=== PATIENT | male | born 1975 | race Caucasian/White ===

== ENCOUNTER → 2018-05-16 16:28 | Outpatient (CLI) | payer OTHER, SELFPAY ==
[2017-03-01 19:59] VITALS: BMI 27.2
[2018-05-16 17:57] LABS: Amphetamine Urine VISTA NEGATIVE (<1000 ng/mL); Barbiturate Urine VISTA NEGATIVE (< 200 ng/mL); Benzodiazepine Urine VISTA NEGATIVE (< 200 ng/mL); Cocaine Urine VISTA NEGATIVE (< 300 ng/mL); Ecstacy Urine VISTA NEGATIVE (< 500 ng/mL); Methadone Urine VISTA NEGATIVE (< 300 ng/mL); PCP Urine VISTA NEGATIVE (< 25 ng/mL); THC Urine VISTA NEGATIVE (< 50 ng/mL); Vista UDS pH Range 6
--- OUTSIDE RECORDS SUMMARY | 2018-07-12 02:41 | XMS RPT_ITS | Summary of Care ---
:1975 Author Organization [facility] Address [address] [place] [address] Care Team Providers Name Role Phone Tonja Fraser MD Primary Care Provider Encounter Details Date Type Department Care Team Description 02/01/2018 Hospital Encounter [facility] [place] James Oconnor MD [place], [place] [address] [place] [address] [address] [address] [place] [address] Allergies Active Allergy Reactions Severity Noted Date Comments Penicillins 08/25/2015 as of this encounter Medications Prescription Sig. Disp. Refills Start Date End Date Status aspirin 81 MG EC Take 81 mg by Active tablet mouth daily. lansoprazole Take 15 mg by Active (PREVACID) 15 MG mouth daily. capsule tadalafil (CIALIS) 5 Take 5 mg by mouth Active MG tablet daily as needed for erectile dysfunction. clomiPHENE (CLOMID) 50 Take 25 mg by Active mg tablet mouth daily. cetirizine (ZYRTEC) 10 Take 10 mg by Active MG tablet mouth daily. potassium 99 mg Tab Take by mouth. Active magnesium aspartate Take 615 mg by Active (MAGINEX) 61 mg (615 mouth 2 (two) mg) tablet times a day. multivitamin Take 1 tablet by Active (THERAGRAN) per tablet mouth daily. HYDROcodone-acetaminop Take 1 tablet by Active hen (NORCO) 7.5-325 mg mouth. per tablet atorvastatin (LIPITOR) TAKE ONE TABLET BY 30 tablet 12/01/2017 Active 80 MG tablet MOUTH ONCE DAILY XTAMPZA ER 12 hr 01/29/2018 Active capsule sprinkle lisinopril-hydrochloro Take 1 (one) 30 tablet 02/01/2018 Active thiazide tablet by mouth (PRINZIDE,ZESTORETIC) daily. 20-25 mg per tablet labetalol (NORMODYNE) Take 1 (one) 60 tablet 11 02/01/2018 Active 100 MG tablet tablet (100 mg total) by mouth 2 (two) times a day. as of this encounter Active Problems Problem Noted Date CAD (coronary artery disease) 08/29/2015 Overview: RCA MARIA T 2009 Hyperlipidemia 08/29/2015 Hypertension 08/29/2015 Social History Tobacco Use Types Packs/Day Years Used Date Former Smoker Cigarettes Smokeless Tobacco: Current User Snuff Comments: Quit 6 years ago. Alcohol Use Drinks/Week oz/Week Comments Yes 0 Standard drinks or equivalent 0.0 occasionally Sex Assigned at Date Recorded Not on file as of this encounter Progress Notes James Oconnor MD - 02/01/2018 6:25 PM EDTLipids and LFT's acceptable but K mildly depressed. Increase dietary K and repeat only BMP in 3 monthsin this encounter Plan of Treatment Health Maintenance Due Date Last Done Comments TETANUS EVERY 10 YR 1975 SEQUENTIAL INFLUENZA VACCINE (#1) 2018 as of this encounter Results Lipid Panel (02/01/2018 3:46 PM) Component Value Ref Range Cholesterol 136 100 - 199 mg/dL Triglycerides 136 (H) 25 - 120 mg/dL HDL 43 40 - 59 mg/dL LDL 65 10 - 150 mg/dL VLDL 27 5 - 40 mg/dL CHOL/HDL Ratio 3.1 (L) 3.2 - 5.0 Comment: Male Coronary Heart Disease Risk Factor (CHDRF): Average risk= 5.0 1/2 Average risk= 3.4 2 times Average risk= 9.6 Specimen [place] [address] Hepatic Function Panel (02/01/2018 3:46 PM) Component Value Ref Range AST 16 0 - 45 U/L Comment: This test result might be falsely depressed or falsely elevated on samples drawn from patients taking Sulfasalazine and Sulfapyridine. Venipuncture should occur prior to taking either of these drugs. ALT 34 14 - 65 U/L Comment: This test result might be falsely depressed or falsely elevated on samples drawn from patients taking Sulfasalazine and Sulfapyridine. Venipuncture should occur prior to taking either of these drugs. Alkaline Phosphatase 50 40 - 150 U/L Bilirubin, Total 0.3 0.3 - 1.2 mg/dL Bilirubin, Direct <0.1 0.0 - 0.4 mg/dL Total Protein 6.7 6.0 - 8.0 g/dL Albumin 4.0 3.2 - 5.2 g/dL Specimen Performing Laboratory Blood [address] [address] Basic Metabolic Panel (02/01/2018 3:46 PM) Component Value Ref Range Glucose 90 70 - 99 mg/dL Comment: This test result might be falsely depressed or falsely elevated on samples drawn from patients taking Sulfasalazine and Sulfapyridine. Venipuncture should occur prior to taking either of these drugs. BUN 9 8 - 25 mg/dL Creatinine 0.90 0.50 - 1.30 mg/dL eGFR >=60 ml/min/1.73sq.m Comment: Non- GFR Calc eGFR is an estimated Glomerular Filtration Rate based on the value of the patient's serum creatinine. In outpatients, eGFR should be used as a helpful tool in screening for CKD. In inpatients or patients with acute renal failure, eGFR represents the GFR at the moment of the draw and should be used with caution. eGFR >=60Comment: GFR Calc ml/min/1.73sq.m Calcium 8.8 8.4 - 10.2 mg/dL Sodium 140 135 - 145 mmol/L Potassium 3.4 (L) 3.5 - 5.1 mmol/L Chloride 104 98 - 108 mmol/L CO2 27 21 - 32 mmol/L Specimen Performing Laboratory Blood [address] [address] in this encounter
--- OUTSIDE RECORDS SUMMARY | 2018-07-12 02:41 | XMS RPT_ITS ---
:1975 Author Organization [facility] Care Team Providers Name Role Phone JAMES OCONNOR Attending Unavailable GEO GUILLORY Primary Care Unavailable Dr. James Oconnor Admitting Unavailable Dr. 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 Luiza Stokes Active [place] dependence, [facility] F11.20(ICD-10) Repository 02/01/2018 [facility] / [place] I10(ICD-10) Repository 02/01/2018 [facility] of [place] coronary Repository artery without angina pectoris / I25.10(ICD-10) PROCEDURES PROCEDURES No Procedure Records FoundRESULTS RESULTS URINE DRUG SCREEN Collected: 05/16/2018 Status: F Source: [place] (VISTA) 4:50 PM [facility] REPOSITORY Order Comment: Comments: [id number] RUN LOWEST TEST List of Drugs Taken or Suspected? UNK TYPE CODE TESTS RESULT OUT OF RANGE REFERENCE UNITS LAB L505.0075 TO BE Normal CONFIRMED Result Comment: CONFIRMATORY TESTING FOR ALL POSITIVE URINE DRUG SCREEN RESULTS WILL ONLY BE SENT OUT UPON PHYSICIAN ORDER. VISTA Urine Drug Screen methods provide only preliminary analytical test results. A more specific alternate chemical method must be used in order to obtain a confirmed analytical result. Gas chromatography/mass spectrometery (GC/MS) is the preferred confirmatory method. Clinical consideration and professional judgement should be applied to any drug of abuse test result, particularly when preliminary positive results are used. URINE TCA TESTING MUST BE ORDERED SEPARATELY. USE TEST MNEMONIC: [facility] LAB L505.5005 VISTA UDS PH 6 Normal LAB L505.5015 <1000 ng/mL AMPHETAMINES Normal NEGATIVE LAB L505.5025 < 200 ng/mL BARBITIURATES Normal NEGATIVE LAB L505.5035 < 200 ng/mL BENZODIAZIPINE Normal NEGATIVE LAB L505.5045 < 300 ng/mL COCAINE Normal NEGATIVE LAB L505.5055 < 500 ng/mL ECSTACY Normal NEGATIVE LAB L505.5065 < 300 ng/mL METHADONE Normal NEGATIVE LAB L505.5075 < 300 High ng/mL OPIATES POSITIVE LAB L505.5085 < 25 ng/mL PCP Normal NEGATIVE LAB L505.5095 < 50 ng/mL THC Normal NEGATIVE Performed By: #### L505.5000 #### [facility] [address] [place], [address] MISCELLANEOUS LAB Collected: 05/16/2018 Status: F Source: [place] PROCEDURE 4:50 PM [facility] REPOSITORY Order Comment: Comments: [id number] RUN LOWEST TEST Test(s) Ordered: [id number] RUN LOWEST TEST TYPE CODE TESTS RESULT OUT OF RANGE REFERENCE UNITS LAB L801.1541 Normal [facility] LAB TEST Result Comment: [id number] 6+OXYCODONE-BUND (ng/mL) DRUG RESULT SCREEN CUTOFF ____ Amphetamines,Urine Negative ng/mL 1000 Amphetamine test includes Amphetamine and Methamphetamine. Barbiturates Negative ng/mL 200 Benzodiazepines Negative ng/mL 200 Cannabinoid Negative ng/mL 20 Cocaine (Metab) Negative ng/mL 300 Opiates Negative ng/mL 300 Opiates test includes Codeine, Morphine, Hydromorphone, Hydrocodone. Oxycodone/Oxymorphone,Urine Positive ng/mL 300 Test includes Oxydodone and Oxymorphone. Oxycodone Positive Oxycodone GC/MS 1243 ng/mL 300 Oxymorphone Positive Oxymorphone GC/MS 1990 ng/mL 300 TESTING PERFORMED AT [facility]. ORIGINAL REPORT ON FILE IN LAB CONTAINS ADDITIONAL TEST SITE INFORMATION. Performed By: #### L801.1541 #### [facility] [address] [place], [address] BASIC METABOLIC PANEL Collected: 02/01/2018 Status: F Source: [facility] 3:[address] [facility] REPOSITORY TYPE CODE TESTS RESULT OUT OF RANGE REFERENCE UNITS LAB GLU 70-99 mg/dL Normal Glucose 90 Result Comment: This test result might be falsely depressed or falsely elevated on samples drawn from patients taking Sulfasalazine and Sulfapyridine. Venipuncture should occur prior to taking either of these drugs. LAB BUN 8-25 mg/dL Normal BUN 9 LAB CREA 0.50-1.30 mg/dL Normal Creatinine 0.90 LAB eGFR ml/min/1.73s Normal q.m eGFR,NonAfrican-Am erican >=60 Result Comment: Non- GFR Calc eGFR is an estimated Glomerular Filtration Rate based on the value of the patient's serum creatinine. In outpatients, eGFR should be used as a helpful tool in screening for CKD. In inpatients or patients with acute renal failure, eGFR represents the GFR at the moment of the draw and should be used with caution. LAB eGFRB ml/min/1.73sq.m eGFR, Normal -Lebanese >=60 Result Comment: GFR Calc LAB CALCM 8.4-10.2 mg/dL Calcium Normal 8.8 LAB NA 135-145 mmol/L Sodium Normal 140 LAB K 3.5-5.1 mmol/L Low Potassium 3.4 LAB CL 98-108 mmol/L Chloride Normal 104 LAB CO2 21-32 mmol/L CO2 Normal 27 Performed By: #### HEPF, CHEM8, LIPID #### Unless otherwise noted, all testing performed by [place] [address] CLIA: [id number] Etl Lead: Sean Simmons M.D. HEPATIC FUNCTION Collected: 02/01/2018 Status: F Source: [facility] PANEL 3:[address] [facility] REPOSITORY TYPE CODE TESTS RESULT OUT OF RANGE REFERENCE UNITS LAB AST 0-45 U/L Normal AST 16 (SGOT) Result Comment: This test result might be falsely depressed or falsely elevated on samples drawn from patients taking Sulfasalazine and Sulfapyridine. Venipuncture should occur prior to taking either of these drugs. LAB ALT 14-65 U/L Normal ALT (SGPT) 34 Result Comment: This test result might be falsely depressed or falsely elevated on samples drawn from patients taking Sulfasalazine and Sulfapyridine. Venipuncture should occur prior to taking either of these drugs. LAB ALKP 40-150 U/L Normal Alkaline Phosphatase 50 LAB BILIT 0.3-1.2 mg/dL Normal Bilirubin,Total 0.3 LAB BILID 0.0-0.4 mg/dL Normal Bilirubin, Direct < 0.1 LAB PROT 6.0-8.0 g/dL Normal Protein, Total 6.7 LAB ALB 3.2-5.2 g/dL Normal Albumin 4.0 Performed By: #### HEPF, CHEM8, LIPID #### Unless otherwise noted, all testing performed by [address] [address] CLIA: [id number] Etl Lead: Sean Simmons M.D. LIPID PANEL Collected: 02/01/2018 Status: F Source: [facility] 3:[address] [facility] REPOSITORY TYPE CODE TESTS RESULT OUT OF REFERENCE UNITS RANGE LAB CHOL 100-199 mg/dL Cholesterol Normal 136 LAB TRIG 25-120 mg/dL Triglycerides High 136 LAB HDL 40-59 mg/dL HDL Normal 43 LAB LDL 10-150 mg/dL LDL Normal 65 LAB VLDL 5-40 mg/dL VLDL Normal 27 LAB CHOL/HDL 3.2-5.0 Low CHOL/HDL Ratio 3.1 Result Comment: Male Coronary Heart Disease Risk Factor (CHDRF): Average risk= 5.0 1/2 Average risk= 3.4 2 times Average risk= 9.6 Performed By: #### HEPF, CHEM8, LIPID #### Unless otherwise noted, all testing performed by [facility] [address] [place], [place] [address] CLIA: [id number] Etl Lead: Sean Simmons M.D. ALLERGIES ALLERGIES DATE TYPE / CODE NAME / CODE REACTION SEVERITY SOURCE 03/01/2017 Drug Penicillins/[id number] Rash Unknown [place] Allergy/416 0476(RXNORM) Replaced By [facility] [id number]([facility] ED CT) Repository 08/25/2015 Drug PENICILLINS [facility] Class/78039 Three Repository 1003(OMED CT) ENCOUNTERS ENCOUNTERS ADMIT/DISCHARGE ACCOUNT NUMBER ADMITTING ENCOUNTER LOCATION SOURCE CLASS 05/16/2018 [id number] Ambulatory [facility] ding:LAB Repository 02/01/[id number] Anastasia [facility] Repository 02/01/2018/02/02/20 [id number] Ambulatory Building:[place] [address] HVPGAHANNA Three BPKWY Repository PAYERS PAYERS ENCOUNTER GUARANTOR PAYER SUBSCRIBER SOURCE 05/16/2018 LISA Key Primary Insurance:MED LISA Posadas [id number] [facility] BOOHERDOB: [address] Number: [id number] [address]Gtv: [phone] [id number] Repository [phone] () Date:0884-27-23[address] [address], [place] [address]FP: CHECK WEBSITE 05/16/2018 [facility]SELF PAY [facility] Number: Effective Repository Date:2018-05-16 02/01/2018 Primary LISA Key [facility] Insurance:Medical BOOHERDOB: [facility] [id number] Number: 1 [facility] Repository [id number] [address] [place] [address] Date:Plan Name:Health [id number]: () 02/01/2018 LISA Key Primary LISA Key [facility] BOOHERDOB: Insurance:MMOPolicOohly BOOHERDOB: Three Repository [id number] Number: [id number] [place] [address] Date:2017-06-[address] [place] [address]Zos: [phone]: () [phone] ()
== END ==
PROVIDERS: Family Provider Family Medicine; PCP Family Medicine; Referring Provider Anesthesiology Pain Medicine; Visit Provider Anesthesiology Pain Medicine
DX: F11.20 Opioid dependence, uncomplicated (principal)
CPT/HCPCS: 80307

== ENCOUNTER → 2019-12-10 13:23 | Outpatient (CLI) | payer MEDICAID, SELFPAY ==
[2017-03-01 19:59] VITALS: BMI 27.2
[2019-12-10 14:42] LABS: Amphetamine Urine VISTA NEGATIVE (<1000 ng/mL); Barbiturate Urine VISTA NEGATIVE (< 200 ng/mL); Benzodiazepine Urine VISTA NEGATIVE (< 200 ng/mL); Cocaine Urine VISTA NEGATIVE (< 300 ng/mL); Ecstacy Urine VISTA NEGATIVE (< 500 ng/mL); Methadone Urine VISTA NEGATIVE (< 300 ng/mL); PCP Urine VISTA NEGATIVE (< 25 ng/mL); THC Urine VISTA NEGATIVE (< 50 ng/mL); Vista UDS pH Range 6
== END ==
PROVIDERS: PCP Family Medicine; Referring Provider Anesthesiology Pain Medicine; Visit Provider Anesthesiology Pain Medicine
DX: F11.20 Opioid dependence, uncomplicated (principal)
CPT/HCPCS: 80307

== ENCOUNTER → 2020-03-31 09:57 | Outpatient (CLI) | payer MEDICAID, SELFPAY ==
[2017-03-01 19:59] VITALS: BMI 27.2
[2020-03-31 11:30] LABS: Amphetamine Urine VISTA NEGATIVE (<1000 ng/mL); Barbiturate Urine VISTA NEGATIVE (< 200 ng/mL); Benzodiazepine Urine VISTA NEGATIVE (< 200 ng/mL); Cocaine Urine VISTA NEGATIVE (< 300 ng/mL); Ecstacy Urine VISTA POSITIVE (< 500 ng/mL); Methadone Urine VISTA NEGATIVE (< 300 ng/mL); PCP Urine VISTA NEGATIVE (< 25 ng/mL); THC Urine VISTA NEGATIVE (< 50 ng/mL); Vista UDS pH Range 6
== END ==
PROVIDERS: PCP Family Medicine; Referring Provider Anesthesiology Pain Medicine; Visit Provider Anesthesiology Pain Medicine
DX: F11.20 Opioid dependence, uncomplicated (principal)
CPT/HCPCS: 80307

== ENCOUNTER → 2021-01-04 09:32 | Outpatient (CLI) | payer MEDICAID, SELFPAY ==
[2017-03-01 19:59] VITALS: BMI 27.2
[2021-01-04 10:57] LABS: Amphetamine Urine VISTA NEGATIVE (<1000 ng/mL); Barbiturate Urine VISTA NEGATIVE (< 200 ng/mL); Benzodiazepine Urine VISTA NEGATIVE (< 200 ng/mL); Cocaine Urine VISTA NEGATIVE (< 300 ng/mL); Ecstacy Urine VISTA POSITIVE (< 500 ng/mL); Methadone Urine VISTA NEGATIVE (< 300 ng/mL); PCP Urine VISTA NEGATIVE (< 25 ng/mL); THC Urine VISTA NEGATIVE (< 50 ng/mL); Vista UDS pH Range 6
== END ==
PROVIDERS: PCP Family Medicine; Referring Provider Anesthesiology Pain Medicine; Visit Provider Anesthesiology Pain Medicine
DX: F11.20 Opioid dependence, uncomplicated (principal)
CPT/HCPCS: 80307